=== PATIENT | female | born 1955 | race Caucasian/White ===

== ENCOUNTER → 2017-06-27 | Outpatient (CLI) | payer BC ==
--- NOTE | 2017-06-28 14:17 | MM ---
Reason for exam: screening (asymptomatic). Last mammogram was performed 1 year and 7 months ago. History: Patient is postmenopausal. Family history of premenopausal breast cancer in maternal cousin at age 40. Physical Findings: A clinical breast exam by your physician is recommended on an annual basis and results should be correlated with mammographic findings. MG Screening Mammo w CAD Bilateral CC and MLO view(s) were taken. Prior study comparison: December 05, 2015, bilateral MG 3d screening mammo w/cad. August 06, 2014, bilateral MG screening mammo w CAD. There are scattered fibroglandular densities. No suspicious abnormality. No significant changes when compared with prior studies. ASSESSMENT: Negative, BI-RAD 1 RECOMMENDATION: Routine screening mammogram of both breasts in 1 year.
== END | disposition home or self-care (01) ==
LOC: RADMAMWWP 11:05
PROVIDERS: ATTEND Family Medicine
DX: Z12.31 Encounter for screening mammogram for malignant neoplasm of breast (principal)

== ENCOUNTER → 2018-07-11 | Outpatient (CLI) | payer BC ==
--- NOTE | 2018-07-15 08:55 | MM ---
Reason for exam: screening (asymptomatic). Last mammogram was performed 1 year ago. History: Patient is postmenopausal. Family history of premenopausal breast cancer in maternal cousin at age 40. Physical Findings: A clinical breast exam by your physician is recommended on an annual basis and results should be correlated with mammographic findings. MG Screening Mammo w CAD Bilateral CC and MLO view(s) were taken. Prior study comparison: June 27, 2017, bilateral MG screening mammo w CAD. December 05, 2015, bilateral MG 3d screening mammo w/cad. There are scattered fibroglandular densities. No suspicious abnormality. No significant changes when compared with prior studies. ASSESSMENT: Negative, BI-RAD 1 RECOMMENDATION: Routine screening mammogram of both breasts in 1 year.
== END | disposition home or self-care (01) ==
LOC: RADMAMWWP 09:24
PROVIDERS: ATTEND Family Medicine
DX: Z12.31 Encounter for screening mammogram for malignant neoplasm of breast (principal)
CPT/HCPCS: 77067

== ENCOUNTER → 2019-08-05 | Outpatient (CLI) | payer MEDICARE ==
--- NOTE | 2019-08-06 13:27 | MM ---
Reason for exam: screening (asymptomatic). Last mammogram was performed 1 year and 1 month ago. History: Patient is postmenopausal. Family history of premenopausal breast cancer in maternal cousin at age 40. Physical Findings: A clinical breast exam by your physician is recommended on an annual basis and results should be correlated with mammographic findings. MG 3D Screening Mammo W/Cad Bilateral CC and MLO view(s) were taken. Prior study comparison: July 11, 2018, bilateral MG screening mammo w CAD. June 27, 2017, bilateral MG screening mammo w CAD. There are scattered fibroglandular densities. No suspicious abnormality. No significant changes when compared with prior studies. ASSESSMENT: Negative, BI-RAD 1 RECOMMENDATION: Routine screening mammogram of both breasts in 1 year.
== END | disposition home or self-care (01) ==
LOC: RADMAMWWP 14:20
PROVIDERS: ATTEND Family Medicine
DX: Z12.31 Encounter for screening mammogram for malignant neoplasm of breast (principal); Z80.3 Family history of malignant neoplasm of breast
CPT/HCPCS: 77063; 77067

== ENCOUNTER → 2020-11-02 | Outpatient (CLI) | payer MEDICARE ==
--- NOTE | 2020-11-04 08:05 | BD ---
EXAMINATION TYPE: Axial Bone Density DATE OF EXAM: 11/02/2020 COMPARISON: 04/30/2013 CLINICAL HISTORY: Height: 63 IN Weight: 184 LBS RISK FACTORS HISTORY OF: Surgery to Spine: PT STATES SHE HAD SURGERY TO AREA AROUND L-SPINE (TUMORS). BUT NOTHING WAS DONE TO BONE OF L-SPINE. When: 15 YEARS AGO Active: YES Postmenopausal woman: TOTAL HYST AGE 49 MEDICATIONS: Thyroid Medications: YES Which medication: Synthroid How Lon+ YEARS Additional Medications: CALCIUM, VIT D, SYNTHROID, WOMENS VIT EXAM MEASUREMENTS: Bone mineral densitometry was performed using the [employer]. PT STATES SHE HAD TUMOR REMOVED FROM L-SPINE AREA . NOTHING WAS DONE DONE TO BONE PER PT. Bone mineral density as measured about the Lumbar spine is: ----- L1-L4(G/cm2): 1.365 T Score Values are as follows: ----- L2: 2.5 ----- L3: 0.5 ----- L4: 1.1 ----- L1-L4: 1.5 Bone mineral density BASELINE Bone mineral density about the R hip (g/cm2): 0.717 Bone mineral density about the L hip (g/cm2): 1.030 T Score values are as follows: -----R Neck: -2.3 -----L Neck: -0.1 -----R Total: -1.8 -----L Total: -0.6 Bone mineral density has: Decreased -5.5% since study of: 04/30/2013 IMPRESSION: Osteopenia (T Score between -2.5 and -1). There is slightly increased risk of fracture and the patient may be considered for treatment. Re-Screen 2-5 years. NOTE: T-SCORE=SD OF THE YOUNG ADULT MEAN.
--- NOTE | 2020-11-07 10:03 | MM ---
Reason for exam: screening (asymptomatic). Last mammogram was performed 1 year and 3 months ago. History: Patient is postmenopausal. Family history of premenopausal breast cancer in maternal cousin at age 40. Physical Findings: A clinical breast exam by your physician is recommended on an annual basis and results should be correlated with mammographic findings. MG 3D Screening Mammo W/Cad Bilateral CC and MLO view(s) were taken. XCCL view(s) were taken of the left breast. Prior study comparison: August 05, 2019, bilateral MG 3d screening mammo w/cad. July 11, 2018, bilateral MG screening mammo w CAD. There are scattered fibroglandular densities. No significant changes when compared with prior studies. ASSESSMENT: Negative, BI-RAD 1 RECOMMENDATION: Routine screening mammogram of both breasts in 1 year.
== END ==
LOC: RADMAMWWP 13:08
PROVIDERS: ATTEND Family Medicine
DX: Z12.31 Encounter for screening mammogram for malignant neoplasm of breast (principal); M85.89 Other specified disorders of bone density and structure, multiple sites; R92.2 Inconclusive mammogram
CPT/HCPCS: 77063; 77067; 77080

== ENCOUNTER 2021-10-27 09:30 | Emergency (ER) | payer MEDICARE ==
[2021-10-27] MEDS ORDERED: ASPIRIN 81 MG PO STA (10:01)
[2021-10-27] MEDS ORDERED: SODIUM CHLORIDE 0.9% 500 ML 500 ML IV STA (10:01)
[2021-10-27] MEDS ORDERED: ADENOSINE 3 MG/ML 2 ML VIAL IVP STA (10:03)
[2021-10-27 10:32] LABS: Partial Thromboplastin Time 24.6 sec (22.0-30.0); Prothrombin Time 10.8 sec (9.0-12.0)
--- NOTE | 2021-10-27 10:33 | XR ---
EXAMINATION TYPE: XR chest 2V DATE OF EXAM: 10/27/2021 COMPARISON: NONE HISTORY: Dysrhythmia TECHNIQUE: Frontal and lateral views of the chest are obtained. FINDINGS: There is no focal air space opacity, pleural effusion, or pneumothorax seen. The cardiac silhouette size is within normal limits. The osseous structures are intact. IMPRESSION: No acute cardiopulmonary process.
[2021-10-27 10:37] LABS: Albumin 4.7 g/dL (3.5-5.0); Calcium 9.6 mg/dL (8.4-10.2); Magnesium 1.8 mg/dL (1.6-2.3); Potassium 4.2 mmol/L (3.5-5.1); Total Bilirubin 0.5 mg/dL (0.2-1.3); Total Protein 7.9 g/dL (6.3-8.2)
[2021-10-27 10:47] VITALS: RESP 18
[2021-10-27 11:33] LABS: Appearance,Urine Clear (Clear); Bilirubin,Urine Negative (Negative); Blood,Urine Negative (Negative); Color,Urine Colorless; Glucose,Urine (UA) Negative (Negative); Ketones,Urine Negative (Negative); Leukocyte Esterase,Urine Negative (Negative); Nitrite,Urine Negative (Negative); PH, Urine 6.5 (5.0-8.0); Protein,Urine Negative (Negative); Specific Gravity,Urine 1.004 (1.001-1.035); Urobilinogen,Urine <2.0 mg/dL (<2.0)
[2021-10-27 12:32] LABS: Basophils % (A) 0 %; Eosinophils # (A) 0.1 k/uL (0-0.7); Eosinophils % (A) 1 %; HCT 43.5 % (34.0-46.0); HGB 14.3 gm/dL (11.4-16.0); Lymphocytes # (A) 1.2 k/uL (1.0-4.8); Lymphocytes % (A) 22 %; MCH 31.3 pg (25.0-35.0); MCHC 32.9 g/dL (31.0-37.0); Mean Platelet Volume 7.5; Monocytes # (A) 0.4 k/uL (0-1.0); Monocytes % (A) 7 %; Neutrophils # (A) 3.7 k/uL (1.3-7.7); Neutrophils % (A) 67 %; Platelet Count 307 k/uL (150-450); RBC 4.58 m/uL (3.80-5.40); RDW 13.6 % (11.5-15.5); WBC 5.5 k/uL (3.8-10.6)
[2021-10-27 12:52] VITALS: BP 136/80; PULSE 76; TEMP 97.5
--- NOTE | 2021-10-27 13:01 | ED ---
General Adult HPI - General Chief complaint: Arrhythmia/Palpitations Stated complaint: Palpitations, dizziness Time Seen by Provider: 10/27/21 09:57 Source: patient, RN notes reviewed, old records reviewed Mode of arrival: ambulatory Limitations: no limitations - History of Present Illness Initial comments: Patient is a 66-year-old female with past medical history remarkable for thyroid disease, peripheral neuropathy, pressure ulcer over the right buttock who presents to the emergency Department complaining of palpitations. She states she was eating breakfast this morning when she had sudden onset of palpitations. Denies any shortness of breath, chest pain, abdominal pain, nausea, vomiting. States she did feel mildly lightheaded which is since resolved. Denies any fevers, chills, cough. She is on antibiotics for her sacral ulcer/wound. She is taking Bactrim. Denies any other acute point at this time. Presents over concern for her palpitations. - Related Data Home Medications Medication Instructions Recorded Confirmed Cyclobenzaprine [Flexeril] 10 mg PO TID PRN 10/27/21 10/27/21 Levothyroxine Sodium [Synthroid] 25 mcg PO FRSA@209910/27/21 10/27/21 Levothyroxine Sodium [Synthroid] 50 mcg PO SUMOTUWETH@209910/27/21 10/27/21 Sulfamethoxazole/Trimethoprim 1 tab PO BID 10/27/21 10/27/21 [Bactrim DS 800-160 mg] Allergies Allergy/AdvReac Type Severity Reaction Status Date / Time nguyen Allergy Rash/Hives Verified 10/27/21 10:38 Penicillins Allergy Rash/Hives Verified 10/27/21 10:38 triamcinolone [From Kenalog] Allergy Anaphylaxis Verified 10/27/21 10:38 Review of Systems ROS Statement: Those systems with pertinent positive or pertinent negative responses have been documented in the HPI. Review of Systems: CONST: Denies fever EYES: Denies blurry vision ENT: Denies nasal congestion C/V: Endorses palpitations RESP: Denies shortness of breath GI: Denies abdominal pain : Denies dysuria SKIN: Denies rash. MSK: Denies joint pain. NEURO: Denies headache ROS Other: All systems not noted in ROS Statement are negative. Past Medical History Past Medical History: Thyroid Disorder History of Any Multi-Drug Resistant Organisms: None Reported Past Surgical History: No Surgical Hx Reported Past Psychological History: No Psychological Hx Reported Smoking Status: Never smoker Past Alcohol Use History: None Reported Past Drug Use History: None Reported General Exam - General Exam Comments Initial Comments: General: Appears in no acute distress. HEAD: Normal with no signs of head trauma. EYES: PERRLA, EOMI, conjunctiva normal, no discharge. ENT: Hearing grossly intact, normal oropharynx. RESPIRATORY: Clear breath sounds bilaterally. No wheezes, rales, or rhonchi. C/V: Patient is tachycardic with a regular rhythm. S1 and S2 auscultated. Peripheral pulses 2+ and intact throughout. No peripheral edema. ABD: Abd is soft, nontender, nondistended EXT: Normal range of motion, no obvious deformity SKIN: Small proximal quarter size pressure ulcer located over the right buttock that has clean margins, has no discharge. Appears well dressed. Appears not acutely infected. No surrounding erythema, fluctuance, induration. NEURO: Alert and oriented x 4. Cranial nerves II-XII intact. No focal sensory or strength deficits. GCS is 15. NIH is 0. Limitations: no limitations Course Vital Signs 10/27/21 10/27/21 10/27/21 09:35 10:43 12:49 Temperature 98.6 F 97.5 F L Pulse Rate 188 H 92 76 Respiratory 20 18 18 Rate Blood Pressure 101/78 154/90 136/80 O2 Sat by Pulse 96 98 94 L Oximetry Medical Decision Making - Medical Decision Making Based on the patient's presentation and physical exam, I'm concerned for supraventricular tachycardia in this patient. Initial EKG did reveal this. Therefore we will obtain a cardiac workup. Patient will be administered 6 mg of IV adenosine. She was in agreement this plan. She was connected to cardiac monitoring as well as the pads and monitor. She'll be given a one-time dose of aspirin. She also be given a small fluid bolus. Adenosine was administered, and patient converted to normal sinus rhythm. Repeat EKG revealed sinus tachycardia. Chest x-ray revealed no acute cardiopulmonary process. Laboratory studies were remarkable for a negative troponin. Urine is negative. TSH is within normal limits. Remainder the labs are unremarkable. On reevaluation following an extended stay in the emergency department due to a prolonged wait time for CBC reveals no acute findings or cause for the patient's SVT. She is remained stable connected to continue his cardiac monitoring throughout her stay. Vital signs of breathing remained within normal limits. Heart rate is remained ranging from the 80s to 100. I did discuss with her admission versus discharge, she had no other complaints upon arrival other than palpitations. We both agree that it is safe for the patient be discharged home with close follow-up. She never had chest pain. She never had shortness of breath. She was in agreement this plan. I counseled her to avoid any alcohol as well as stimulating substances such as caffeine. I instructed the patient to follow up with their PCP in the next 3 days. . I explained that the patient should return to the emergency department if they experience any worsening symptoms. Strict return precautions were discussed with the patient. The patient expressed understanding of these instructions. I answered all questions that the patient had. The patient was discharged home in good condition with their prescriptions and follow up information. - Lab Data Result diagrams: 10/27/21 12:29 10/27/21 10:03 Lab Results 10/27/21 10/27/21 10/27/21 Range/Units 10:03 10:03 10:03 WBC (3.8-10.6) k/uL RBC (3.80-5.40) m/uL Hgb (11.4-16.0) gm/dL Hct (34.0-46.0) % MCV (80.0-100.0) fL MCH (25.0-35.0) pg MCHC (31.0-37.0) g/dL RDW (11.5-15.5) % Plt Count (150-450) k/uL MPV Neutrophils % % Lymphocytes % % Monocytes % % Eosinophils % % Basophils % % Neutrophils # (1.3-7.7) k/uL Lymphocytes # (1.0-4.8) k/uL Monocytes # (0-1.0) k/uL Eosinophils # (0-0.7) k/uL Basophils # (0-0.2) k/uL PT 10.8 (9.0-12.0) sec INR 1.0 (<1.2) APTT 24.6 (22.0-30.0) sec Sodium 138 (137-145) mmol/L Potassium 4.2 (3.5-5.1) mmol/L Chloride 102 (98-107) mmol/L Carbon Dioxide 25 (22-30) mmol/L Anion Gap 11 mmol/L BUN 23 H (7-17) mg/dL Creatinine 1.22 H (0.52-1.04) mg/dL Est GFR (CKD-EPI)AfAm 53 (>60 ml/min/1.73 sqM) Est GFR (CKD-EPI)NonAf 46 (>60 ml/min/1.73 sqM) Glucose 124 H (74-99) mg/dL Calcium 9.6 (8.4-10.2) mg/dL Magnesium 1.8 (1.6-2.3) mg/dL Total Bilirubin 0.5 (0.2-1.3) mg/dL AST 29 (14-36) U/L ALT 23 (4-34) U/L Alkaline Phosphatase 101 (38-126) U/L Troponin I <0.012 (0.000-0.034) ng/mL Total Protein 7.9 (6.3-8.2) g/dL Albumin 4.7 (3.5-5.0) g/dL TSH 3.680 (0.465-4.680) mIU/L Urine Color Urine Appearance (Clear) Urine pH (5.0-8.0) Ur Specific [place] (1.001-1.035) Urine Protein (Negative) Urine Glucose (UA) (Negative) Urine Ketones (Negative) Urine Blood (Negative) Urine Nitrite (Negative) Urine Bilirubin (Negative) Urine Urobilinogen (<2.0) mg/dL Ur Leukocyte Esterase (Negative) 10/27/21 10/27/21 Range/Units 11:00 12:29 WBC 5.5 (3.8-10.6) k/uL RBC 4.58 (3.80-5.40) m/uL Hgb 14.3 (11.4-16.0) gm/dL Hct 43.5 (34.0-46.0) % MCV 95.0 (80.0-100.0) fL MCH 31.3 (25.0-35.0) pg MCHC 32.9 (31.0-37.0) g/dL RDW 13.6 (11.5-15.5) % Plt Count 307 (150-450) k/uL MPV 7.5 Neutrophils % 67 % Lymphocytes % 22 % Monocytes % 7 % Eosinophils % 1 % Basophils % 0 % Neutrophils # 3.7 (1.3-7.7) k/uL Lymphocytes # 1.2 (1.0-4.8) k/uL Monocytes # 0.4 (0-1.0) k/uL Eosinophils # 0.1 (0-0.7) k/uL Basophils # 0.0 (0-0.2) k/uL PT (9.0-12.0) sec INR (<1.2) APTT (22.0-30.0) sec Sodium (137-145) mmol/L Potassium (3.5-5.1) mmol/L Chloride (98-107) mmol/L Carbon Dioxide (22-30) mmol/L Anion Gap mmol/L BUN (7-17) mg/dL Creatinine (0.52-1.04) mg/dL Est GFR (CKD-EPI)AfAm (>60 ml/min/1.73 sqM) Est GFR (CKD-EPI)NonAf (>60 ml/min/1.73 sqM) Glucose (74-99) mg/dL Calcium (8.4-10.2) mg/dL Magnesium (1.6-2.3) mg/dL Total Bilirubin (0.2-1.3) mg/dL AST (14-36) U/L ALT (4-34) U/L Alkaline Phosphatase (38-126) U/L Troponin I (0.000-0.034) ng/mL Total Protein (6.3-8.2) g/dL Albumin (3.5-5.0) g/dL TSH (0.465-4.680) mIU/L Urine Color Colorless Urine Appearance Clear (Clear) Urine pH 6.5 (5.0-8.0) Ur Specific [place] 1.004 (1.001-1.035) Urine Protein Negative (Negative) Urine Glucose (UA) Negative (Negative) Urine Ketones Negative (Negative) Urine Blood Negative (Negative) Urine Nitrite Negative (Negative) Urine Bilirubin Negative (Negative) Urine Urobilinogen <2.0 (<2.0) mg/dL Ur Leukocyte Esterase Negative (Negative) - EKG Data -: EKG Interpreted by Me EKG Comments: 12-lead Electrocardiogram Interpretation Note EKG was reviewed and interpreted by myself. 12-lead ECG performed at 0944 is interpreted by me as revealing supraventricular tachycardia at a rate of 184 beats per minute. Menard is normal. CO interval is unobtainable, QRS duration is 80 ms, QTc is 302 ms.. There were no ST or T wave abnormalities to suggest myocardial ischemia or injury. R wave progression across the precordium was satisfactory. By my interpretation this EKG is non-diagnostic for acute ischemia. It does reveal supraventricular tachycardia. Repeat EKG was obtained following adenosine administration. 12-lead Electrocardiogram Interpretation Note EKG was reviewed and interpreted by myself. 12-lead ECG performed at 0956 is interpreted by me as revealing sinus tachycardia at a rate of 112 beats per minute. Menard is normal. CO interval is 110 ms, QRS duration is 84 ms, QTc is 392 ms.. There were no ST or T wave abnormalities to suggest myocardial ischemia or injury. R wave progression across the precordium was satisfactory. By my interpretation this EKG is non-diagnostic for acute ischemia. SVT has resolved. Disposition Clinical Impression: SVT (supraventricular tachycardia) Disposition: HOME SELF-CARE Condition: Good Instructions (If sedation given, give patient instructions): Supraventricular Tachycardia (ED) Is patient prescribed a controlled substance at d/c from ED?: No Referrals: Natanael Horta MD [Primary Care Provider] - 1-2 days
== END 2021-10-27 13:26 | disposition home or self-care (01) ==
LOC: EC 09:30
DX: I47.1 Supraventricular tachycardia (principal)
CPT/HCPCS: 36415; 93005; 80053; 83735; 84443; 84484; 85025; 85610; 85730; 81003; 71046; 99285; 96374; J0153

== ENCOUNTER → 2023-06-19 | Outpatient (CLI) | payer MEDICARE ==
--- NOTE | 2023-06-19 13:48 | MM ---
Reason for Exam: Screening (asymptomatic). Last mammogram was performed 2 year(s) and 8 month(s) ago. Patient History: Menarche at age 10. First Full-Term at age 25. Left ovary removed at age 51. Right ovary removed at age 51. Hysterectomy at age 51. Postmenopausal. Maternal cousin had breast cancer, age 40. Risk Values: America 5 year model risk: 2.1%. NCI Lifetime model risk: 6.4%. Prior Study Comparison: 07/11/2018 Bilateral Screening Mammogram, [facility]. 08/05/2019 Bilateral Screening Mammogram, [facility]. 11/02/2020 Bilateral Screening Mammogram, [facility]. Tissue Density: There are scattered fibroglandular densities. Findings: Analyzed By CAD. There is no suspicious group of microcalcifications or new suspicious mass in either breast. Overall Assessment: Negative, BI-RAD 1 Management: Screening Mammogram of both breasts in 1 year. A clinical breast exam by your physician is recommended on an annual basis and results should be correlated with mammographic findings. Note on America scores and lifetime risk: 1. A America score greater than 3% is considered moderate risk. If this is the case, consider specialist referral to assess eligibility for a risk reducing agent. If overall lifetime risk for the development of breast cancer is 20% or higher, the patient may qualify for future screening with alternating mammogram and breast MRI. Electronically signed and approved by: Arben Ch D.O.
== END | disposition home or self-care (01) ==
LOC: RADMAMWWP 12:32
PROVIDERS: ATTEND Family Medicine
DX: Z12.31 Encounter for screening mammogram for malignant neoplasm of breast (principal); Z78.0 Asymptomatic menopausal state; Z80.3 Family history of malignant neoplasm of breast
CPT/HCPCS: 77063; 77067

== ENCOUNTER → 2024-07-23 | Outpatient (CLI) | payer MEDICARE ==
--- NOTE | 2024-07-24 17:58 | MM ---
Reason for Exam: Screening (asymptomatic). Last mammogram was performed 1 year(s) and 1 month(s) ago. Patient History: Menarche at age 10. First Full-Term at age 25. Left ovary removed at age 51. Right ovary removed at age 51. Hysterectomy at age 51. Postmenopausal. Maternal cousin had breast cancer, age 40. Risk Values: America 5 year model risk: 2.1%. NCI Lifetime model risk: 6.1%. Prior Study Comparison: 08/05/2019 Bilateral Screening Mammogram, [facility]. 11/02/2020 Bilateral Screening Mammogram, [facility]. 06/19/2023 Bilateral MG 3D screening mammo w/cad, [facility]. Tissue Density: There are scattered areas of fibroglandular density. Findings: Analyzed By CAD. There is no suspicious group of microcalcifications or new suspicious mass in either breast. Overall Assessment: Negative, BI-RAD 1 Management: Screening Mammogram of both breasts in 1 year. . Patient should continue monthly self-breast exams. A clinical breast exam by your physician is recommended on an annual basis. This exam should not preclude additional follow-up of suspicious palpable abnormalities. Note on America scores and lifetime risk: 1. A America score greater than 3% is considered moderate risk. If this is the case, consider specialist referral to assess eligibility for a risk reducing agent. 2. If overall lifetime risk for the development of breast cancer is 20% or higher, the patient may qualify for future screening with alternating mammogram and breast MRI. [facility], , 07/24/2024 5:55 PM. Electronically signed and approved by: Jeremias Weiss M.D. Radiologist
== END | disposition home or self-care (01) ==
LOC: RADMAMWWP 07:51
PROVIDERS: ATTEND Family Medicine
DX: Z12.31 Encounter for screening mammogram for malignant neoplasm of breast (principal); Z78.0 Asymptomatic menopausal state; Z80.3 Family history of malignant neoplasm of breast; Z90.722 Acquired absence of ovaries, bilateral; R92.323 Mammographic fibroglandular density, bilateral breasts
CPT/HCPCS: 77063; 77067